=== PATIENT | female | born 1930 | race African-American/Black ===

== ENCOUNTER 2017-02-06 15:46 | Inpatient (IN) | payer OTHER, MEDICARE ==
[~2017-02-06] VITALS: Ht 172.7 cm; Wt 60.7 kg
[2017-02-06 16:50] VITALS: BP 161/98; PULSE 107
[2017-02-06 20:13] LABS: PH 5 (5-8); SQUAMOUS EPITHELIAL 0-2 /hpf; URINE APPEARANCE Hazy; URINE BACTERIA Rare /hpf; URINE BILIRUBIN Negative (NEGATIVE); URINE BLOOD Negative (NEGATIVE); URINE COLOR Straw; URINE GLUCOSE Negative (NEGATIVE); URINE KETONE Negative (NEGATIVE); URINE RBC None Seen /hpf; URINE UROBILINOGEN Negative (NEGATIVE); URINE WBC 0-2 /hpf
[2017-02-06 20:37] LABS: BASO % 0.5 % (0.0-2.0); EOS % 0.4 % (0-4.0); GRAN # 5.6 (1.4-6.5); GRAN % 73.5 % (42.2-75.2); HEMOGLOBIN 17.4 g/dl (12.5-16.0); LYMPH % 12.4 % (20.0-51.0); MEAN CELL VOLUME 88 fl (80.0-100.0); MEAN CORPUSCULAR HEMOGLOBIN 29 pg (27.0-31.0); MEAN CORPUSCULAR HGB CONC 33 g/dl (33.0-37.0); MEAN PLATELET VOLUME 10.8 fl (7.4-10.4); MONO # 0.9 (0.1-0.6); MONO % 11.9 % (1.7-9.3); PLATELET COUNT 240 K/mm3 (130-400); RED BLOOD COUNT 6.05 M/mm3 (4.10-5.30); REDCELL DISTRIBUTION WIDTH-CV 16.2 % (11.5-14.5); WHITE BLOOD COUNT 7.7 K/mm3 (4.8-10.8)
[2017-02-06 20:41] LABS: HEMATOCRIT 53.3 % (37.0-47.0)
[2017-02-06 20:57] LABS: ADJUSTED CALCIUM 9.8 mg/dL (8.4-10.2); ALBUMIN 3.1 gm/dL (3.5-5.0); BILIRUBIN,TOTAL 1.1 mg/dL (0.0-1.0); CALCIUM 9.1 mg/dL (8.4-10.2); CREATININE, serum 0.68 mg/dL (0.52-1.25); POTASSIUM 3.5 mmol/L (3.4-5.0); TOTAL PROTEIN 7.2 gm/dL (6.4-8.2)
[2017-02-06 22:12] VITALS: BP 144/81; PULSE 84; TEMP 98.1
[2017-02-07] VITALS (8 sets, daily range): BP systolic 117–145; BP diastolic 59–84; PULSE 64–90; TEMP 96.8–98.6
[2017-02-07] MEDS ORDERED: CORGARD20 MG PO (07:48)
[2017-02-07 12:49] LABS: INR 1.3 (0.8-3.0); PROTHROMBIN TIME 14.1 SECONDS (9.7-12.8)
[2017-02-08] VITALS (8 sets, daily range): BP systolic 104–159; BP diastolic 54–100; PULSE 69–100; TEMP 96.6–98
[2017-02-08 07:40] LABS: BASO % 0.6 % (0.0-2.0); EOS # 0.2 (0.0-0.7); EOS % 2.7 % (0-4.0); GRAN # 4.1 (1.4-6.5); GRAN % 60.8 % (42.2-75.2); HEMATOCRIT 44.7 % (37.0-47.0); LYMPH # 1.2 (1.2-3.4); LYMPH % 18.5 % (20.0-51.0); MEAN CELL VOLUME 91 fl (80.0-100.0); MEAN CORPUSCULAR HEMOGLOBIN 29 pg (27.0-31.0); MEAN CORPUSCULAR HGB CONC 32 g/dl (33.0-37.0); MEAN PLATELET VOLUME 11.1 fl (7.4-10.4); MONO # 1.1 (0.1-0.6); MONO % 16.5 % (1.7-9.3); PLATELET COUNT 184 K/mm3 (130-400); RED BLOOD COUNT 4.94 M/mm3 (4.10-5.30); REDCELL DISTRIBUTION WIDTH-CV 15.9 % (11.5-14.5); WHITE BLOOD COUNT 6.7 K/mm3 (4.8-10.8)
[2017-02-08 07:49] LABS: HEMOGLOBIN 14.1 g/dl (12.5-16.0)
[2017-02-08 07:52] LABS: CALCIUM 8.5 mg/dL (8.4-10.2); CREATININE, serum 0.89 mg/dL (0.52-1.25); MAGNESIUM 1.1 mg/dL (1.6-2.3); POTASSIUM 3.9 mmol/L (3.4-5.0)
[2017-02-09 01:16] VITALS: BP 112/61; PULSE 73; TEMP 98.3
[2017-02-09 04:52] VITALS: BP 122/69; PULSE 78; TEMP 98
[2017-02-09 09:51] LABS: CALCIUM 8.8 mg/dL (8.4-10.2); CREATININE, serum 1.02 mg/dL (0.52-1.25); MAGNESIUM 1.9 mg/dL (1.6-2.3); POTASSIUM 3.8 mmol/L (3.4-5.0)
[2017-02-09 10:30] VITALS: BP 124/59; PULSE 49; TEMP 97.2
[2017-02-09 14:00] VITALS: BP 135/96; PULSE 75; TEMP 97.6
[2017-02-09 15:34] LABS: ARTERIAL BLD GAS O2 SATURATION 80.1 % (92-100); ARTERIAL BLD GAS TCO2 CT 26.6; ARTERIAL BLOOD GAS BASE EXCESS 0.5 (-2-2); ARTERIAL BLOOD GAS HCO3 25.4 meq/L (22-26); OXYHEMOGLOBIN 78.7 %
[2017-02-09 15:36] LABS: ALLEN TEST YES; ALLENS TEST RESULT PASS; ARTERIAL BLOOD GAS PO2 45.1 mmHg (80-100); ARTERIAL BLOOD GAS PO2T 45.1 (80-100); ATS? YES
[2017-02-09 17:40] LABS: INR 1.2 (0.8-3.0); PROTHROMBIN TIME 13.1 SECONDS (9.7-12.8)
[2017-02-09 18:10] VITALS: BP 117/53; PULSE 88; TEMP 97.5
[2017-02-09 22:26] VITALS: BP 126/68; PULSE 91; TEMP 97
[2017-02-10 01:31] VITALS: BP 130/75; PULSE 83; TEMP 97.7
[2017-02-10 04:00] VITALS: BP 139/71; PULSE 88; TEMP 97.1
[2017-02-10 08:08] LABS: HEMATOCRIT 43.4 % (37.0-47.0); HEMOGLOBIN 14.2 g/dl (12.5-16.0); MEAN CELL VOLUME 89 fl (80.0-100.0); MEAN CORPUSCULAR HEMOGLOBIN 29 pg (27.0-31.0); MEAN CORPUSCULAR HGB CONC 33 g/dl (33.0-37.0); MEAN PLATELET VOLUME 11.3 fl (7.4-10.4); PLATELET COUNT 141 K/mm3 (130-400); RED BLOOD COUNT 4.89 M/mm3 (4.10-5.30); REDCELL DISTRIBUTION WIDTH-CV 15.1 % (11.5-14.5); WHITE BLOOD COUNT 6.4 K/mm3 (4.8-10.8)
[2017-02-10 08:37] LABS: CALCIUM 8.7 mg/dL (8.4-10.2); CREATININE, serum 0.9 mg/dL (0.52-1.25); POTASSIUM 3.6 mmol/L (3.4-5.0)
[2017-02-10 11:34] LABS: INR 1.3 (0.8-3.0)
[2017-02-10] MEDS ORDERED: IPRATROPIUM BROM3 M1 IH ×2 (13:56)
[2017-02-10] MEDS ORDERED: NORVASC 5MG5 MG/TAB PO (13:57)
[2017-02-10] MEDS ORDERED: LOPRESSOR 225 MG/TAB PO (13:57)
[2017-02-10] MEDS ORDERED: TYLENOL 500MG500 MG PO (13:58)
[2017-02-10] MEDS ORDERED: DESYREL 50MG50 MG PO (14:00)
[2017-02-10] MEDS ORDERED: MAG-OX 400400 MG/TAB PO (14:01)
[2017-02-10] MEDS ORDERED: VITAMINC1000TA PO (14:01)
[2017-02-10] MEDS ORDERED: FOLIC ACID 11 MG/TA1 PO (14:01)
[2017-02-10] MEDS ORDERED: KLOR-CON M2020 MEQ PO (14:05)
[2017-02-10] MEDS ORDERED: LASIX 20MG TABL20 MG PO (14:06)
[2017-02-10] MEDS ORDERED: PERCOCET 325 MG1 TA2 PO (14:06)
[2017-02-10] MEDS ORDERED: DOXYCYCLINE 10100 MG PO (14:24)
[2017-02-10 14:28] VITALS: BP 110/55; PULSE 95; TEMP 97.3
[2017-02-10 15:35] VITALS: BP 110/55; PULSE 95; TEMP 97.3
[2017-02-10 15:40] VITALS: BP 110/55; PULSE 95; TEMP 97.3
[2017-02-22] MEDS ORDERED: IPRATROPIUM BROM3 M1 IH (08:25)
[2017-02-22] MEDS ORDERED: TYLENOL 500MG500 MG PO (08:25)
[2017-02-22] MEDS ORDERED: VITAMINC1000TA (08:26)
[2017-02-22] MEDS ORDERED: DOXYCYCLINE 10100 MG PO (08:26)
[2017-02-22] MEDS ORDERED: FOLIC ACID 11 MG/TA1 PO (08:27)
[2017-02-22] MEDS ORDERED: LASIX 20MG TABL20 MG PO (08:27)
[2017-02-22] MEDS ORDERED: KLOR-CON M2020 MEQ PO (08:28)
[2017-02-22] MEDS ORDERED: MAG-OX 400400 MG/TAB PO (08:28)
[2017-02-22] MEDS ORDERED: LOPRESSOR 225 MG/TAB PO (08:28)
[2017-02-22] MEDS ORDERED: DESYREL 50MG50 MG PO (08:29)
[2017-02-22] MEDS ORDERED: PERCOCET 325 MG1 TA2 PO (08:29)
[2017-02-22] MEDS ORDERED: NORVASC 5MG5 MG/TAB PO (08:29)
[2017-02-22] MEDS ORDERED: PLAVIX 75MG TAB75 MG PO (17:28)
[2017-02-22] MEDS ORDERED: ASPIRIN 81M81 MG/TA2 PO (17:29)
== END 2017-02-10 16:45 | DRG 286 ==
LOC: SURG 15:46
PROVIDERS: Internal Medicine; Internal Medicine Cardiovascular Disease; Internal Medicine Pulmonary Disease; Nurse Practitioner Family; Radiology Diagnostic Radiology
PROC: 4A023N6 Measurement of Cardiac Sampling and Pressure, Right Heart, Percutaneous Approach (ICD-10-PCS; principal; 2017-02-10)
DX: I70.223 Atherosclerosis of native arteries of extremities with rest pain, bilateral legs (principal); J96.01 Acute respiratory failure with hypoxia; E43 Unspecified severe protein-calorie malnutrition; L03.116 Cellulitis of left lower limb; L03.115 Cellulitis of right lower limb; I10 Essential (primary) hypertension; F17.210 Nicotine dependence, cigarettes, uncomplicated; I27.2 Other secondary pulmonary hypertension; B87.0 Cutaneous myiasis; J44.9 Chronic obstructive pulmonary disease, unspecified; F43.21 Adjustment disorder with depressed mood; E83.42 Hypomagnesemia; R54 Age-related physical debility
CPT/HCPCS: 90791-AI; 99223-AI; 99232-AI; 99233-AI; A4315; J0696; J1650; J1940; J2405; J3010; J3370; J3475; J3480; J7030; J7050

== ENCOUNTER → 2017-02-17 | Outpatient (REF) ==
[~2017-02-17] MED LIST: ASPIRIN 81M81 MG/TA2 PO; CORGARD20 MG PO; DESYREL 50MG50 MG PO; DOXYCYCLINE 10100 MG PO; FOLIC ACID 11 MG/TA1 PO; IPRATROPIUM BROM3 M1 IH; KLOR-CON M2020 MEQ PO; LASIX 20MG TABL20 MG PO; LOPRESSOR 225 MG/TAB PO; MAG-OX 400400 MG/TAB PO; MIRALAX PA17 GM/Dose PO; MULTI VITAMINS1 TAB PO; NORVASC 5MG5 MG/TAB PO; PERCOCET 325 MG1 TA2 PO; PLAVIX 75MG TAB75 MG PO; RESTORIL 77.5 MG/CAP PO; TYLENOL 500MG500 MG PO; VITAMINC1000TA; VITAMINC1000TA PO
[2017-02-17 14:33] LABS: HEMATOCRIT 43.6 % (37.0-47.0); HEMOGLOBIN 13.8 g/dl (12.5-16.0); MEAN CELL VOLUME 91 fl (80.0-100.0); MEAN CORPUSCULAR HEMOGLOBIN 29 pg (27.0-31.0); MEAN CORPUSCULAR HGB CONC 32 g/dl (33.0-37.0); MEAN PLATELET VOLUME 11.3 fl (7.4-10.4); PLATELET COUNT 217 K/mm3 (130-400); RED BLOOD COUNT 4.79 M/mm3 (4.10-5.30); REDCELL DISTRIBUTION WIDTH-CV 14.9 % (11.5-14.5); WHITE BLOOD COUNT 5.7 K/mm3 (4.8-10.8)
[2017-02-17 15:11] LABS: BAND 9 % (0-10); EOSINOPHIL 1 % (0-4); NEUTROPHILS 59 % (42.0-75.2); TOTAL CELLS COUNTED 100
[2017-02-17 15:13] LABS: PLATELET ESTIMATE NORMAL (NORMAL)
== END ==
LOC: ZLAB.STJ 14:23
PROVIDERS: Internal Medicine
DX: Z01.89 Encounter for other specified special examinations (principal)

== ENCOUNTER → 2017-02-22 | Day surgery (SDC) | payer OTHER ==
[2017-02-22] VITALS (18 sets, daily range): BP systolic 119–155; BP diastolic 59–99; PULSE 68–89; TEMP 96.9–97
[~2017-02-22] VITALS: Ht 172.7 cm; Wt 68.0 kg
[2017-02-22 08:36] LABS: CREATININE, serum 0.8 mg/dL (0.52-1.25)
[2017-02-22 08:46] LABS: HEMOGLOBIN 15.1 g/dl (12.5-16.0); MEAN CELL VOLUME 93 fl (80.0-100.0); MEAN CORPUSCULAR HEMOGLOBIN 29 pg (27.0-31.0); MEAN CORPUSCULAR HGB CONC 32 g/dl (33.0-37.0); MEAN PLATELET VOLUME 11.4 fl (7.4-10.4); PLATELET COUNT 222 K/mm3 (130-400); RED BLOOD COUNT 5.16 M/mm3 (4.10-5.30); REDCELL DISTRIBUTION WIDTH-CV 14.2 % (11.5-14.5); WHITE BLOOD COUNT 5.6 K/mm3 (4.8-10.8)
[2017-02-22 08:48] LABS: INR 1.2 (0.8-3.0); PROTHROMBIN TIME 12.8 SECONDS (9.7-12.8)
== END ==
LOC: COL.CAR 07:50
PROVIDERS: Radiology Diagnostic Radiology
DX: I25.10 Atherosclerotic heart disease of native coronary artery without angina pectoris (principal); I77.1 Stricture of artery; M79.662 Pain in left lower leg; M79.661 Pain in right lower leg; F17.210 Nicotine dependence, cigarettes, uncomplicated
CPT/HCPCS: C1725; C1769; C1876; C1894; C2628; J1200; J1644; J2250; J3010; J7120; Q9967

== ENCOUNTER → 2017-02-27 | Outpatient (CLI) | payer MEDICARE, OTHER | LOC: WCC 08:31 | DX: I83.009 Varicose veins of unspecified lower extremity with ulcer of unspecified site (principal); L97.919 Non-pressure chronic ulcer of unspecified part of right lower leg with unspecified severity; L97.929 Non-pressure chronic ulcer of unspecified part of left lower leg with unspecified severity | CPT/HCPCS: 13973; A6199; G0463 ==

== ENCOUNTER → 2017-03-06 | Outpatient (CLI) | payer OTHER | LOC: WCC 09:54 | DX: I87.2 Venous insufficiency (chronic) (peripheral) (principal); L97.929 Non-pressure chronic ulcer of unspecified part of left lower leg with unspecified severity | CPT/HCPCS: 13919; 13973; A6199; G0463 ==

== ENCOUNTER → 2017-03-20 | Outpatient (CLI) | payer MEDICARE, OTHER | LOC: WCC 10:16 | DX: Z09 Encounter for follow-up examination after completed treatment for conditions other than malignant neoplasm (principal) | CPT/HCPCS: G0463 ==

== ENCOUNTER 2017-03-28 06:44 | Day surgery (SDC) | payer OTHER ==
[2017-03-28] VITALS (14 sets, daily range): BP systolic 100–124; BP diastolic 59–81; PULSE 67–101; TEMP 97.6
[~2017-03-28] VITALS: Ht 170.2 cm; Wt 52.0 kg
[~2017-03-28 06:44] MED LIST changes: -MIRALAX PA17 GM/Dose PO; -MULTI VITAMINS1 TAB PO; -RESTORIL 77.5 MG/CAP PO
[2017-03-28 07:53] LABS: HEMATOCRIT 40.9 % (37.0-47.0); HEMOGLOBIN 13.3 g/dl (12.5-16.0); MEAN CELL VOLUME 90 fl (80.0-100.0); MEAN CORPUSCULAR HEMOGLOBIN 29 pg (27.0-31.0); MEAN CORPUSCULAR HGB CONC 33 g/dl (33.0-37.0); MEAN PLATELET VOLUME 11.4 fl (7.4-10.4); PLATELET COUNT 185 K/mm3 (130-400); RED BLOOD COUNT 4.53 M/mm3 (4.10-5.30); REDCELL DISTRIBUTION WIDTH-CV 15.2 % (11.5-14.5); WHITE BLOOD COUNT 7.2 K/mm3 (4.8-10.8)
[2017-03-28 07:57] LABS: INR 1.1 (0.8-3.0)
[2017-03-28 08:08] LABS: CREATININE, serum 0.87 mg/dL (0.52-1.25)
[2017-03-28] MEDS ORDERED: MIRALAX PA17 GM/Dose PO (08:14)
[2017-03-28] MEDS ORDERED: RESTORIL 77.5 MG/CAP PO (08:15)
[2017-03-28] MEDS ORDERED: MULTI VITAMINS1 TAB PO (08:18)
== END 2017-03-28 19:16 | disposition home or self-care (01) ==
LOC: COL.CAR 06:44
PROVIDERS: Radiology Diagnostic Radiology
DX: I74.3 Embolism and thrombosis of arteries of the lower extremities (principal); T81.89XA Other complications of procedures, not elsewhere classified, initial encounter; I73.9 Peripheral vascular disease, unspecified
CPT/HCPCS: C1725; C1769; C1876; C1887; J1644; J2250; J3010; J7120; Q9967